=== PATIENT | male | born 2000 | race Caucasian/White ===

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

== ENCOUNTER 2018-06-27 19:22 | Emergency (ER) | payer OTHER ==
--- NOTE | 2018-06-27 19:41 | EDPHY ---
H & P Stated Complaint: R rib pain d/t skateboarding fall x2days ago Time Seen by Provider: 06/27/18 19:41 HPI/ROS: CHIEF COMPLAINT: Pleuritic chest pain, rib pain following fall from skateboard HISTORY OF PRESENT ILLNESS: The patient presents to the ED with complaints of painful breathing and right posterior rib pain after he fell from a skateboard onto his right back 2 days ago. The patient's symptoms have been persistent since his fall. He did not strike his head or lose consciousness. He has no complaints of headache, cervical spine neck pain, numbness, weakness, abdominal pain, lower back pain or lower extremity pain. REVIEW OF SYSTEMS: Constitutional: normal mentation Eyes: No visual changes ENT: no oral trauma Respiratory: As above Cardiac: No chest pain Gastrointestinal: No nausea, no vomiting, no abdominal pain Genitourinary: No hematuria, no dysuria Musculoskeletal: no extremity pain Skin: no abrasions, no lacerations Neurological: No headache, no numbness, no weakness Back: No midline pain Source: Patient Exam Limitations: No limitations - Personal History Current Tetanus/Diphtheria Vaccine: Yes - Medical/Surgical History Hx Asthma: No Hx Chronic Respiratory Disease: No Hx Diabetes: No Hx Cardiac Disease: No Hx Renal Disease: No Hx Cirrhosis: No Hx Alcoholism: No Hx HIV/AIDS: No Hx Splenectomy or Spleen Trauma: No Other PMH: denies - Social History Smoking Status: Never smoked - Physical Exam Exam: General Appearance: Alert, no distress Head: Atraumatic Eyes: Pupils equal, round, reactive ENT, Mouth: No hemotympanum, no oral trauma Neck: Nontender, trachea midline Respiratory: Tenderness to palpation right posterior chest wall, no subcutaneous emphysema Cardiovascular: Regular rate and rhythm Abdomen: Abdomen is soft and nontender, pelvis stable Skin: No lacerations, No abrasion Back: No midline T/L/S pain Extremities: Nontender, full range of motion Constitutional: Initial Vital Signs Temperature (C) 36.8 C 06/27/18 19:24 Heart Rate 82 06/27/18 19:24 Respiratory Rate 18 06/27/18 19:24 Blood Pressure 150/99 H 06/27/18 19:24 O2 Sat (%) 97 06/27/18 19:24 O2 Delivery Mode Room Air Allergies/Adverse Reactions: No Known Allergies Allergy (Unverified 06/27/18 19:27) Home Medications: Medication Instructions Recorded NK [No Known Home Meds] 06/27/18 Medical Decision Making - Diagnostics Imaging Results: Imaging Impressions Chest X-Ray 06/27/18 19:34 Impression: Chest negative for acute posttraumatic sequela. ED Course/Re-evaluation: The patient presents the ED with complaints of posterior rib pain and slight dyspnea following a fall skateboarding several days ago. The patient has no head injury or neck injury. He arrives with a GCS of 15. He has a normal neurologic examination. Vital signs are stable. His abdominal examination is benign. He has no evidence of extremity trauma. The patient was taken for a chest x-ray which demonstrated no evidence of an obvious displaced rib fracture or pneumothorax. Clinically the patient presents with symptoms most consistent with a nondisplaced rib fracture. At this point time the patient will be discharged home with customary rib injury aftercare instructions. He is advised to return to the ED immediately for worsening dyspnea. Patient is encouraged to use Tylenol and ibuprofen as needed for pain management. Differential Diagnosis: Differential diagnosis considered includes rib fracture, pneumothorax, hemothorax, chest wall contusion Departure - Departure Disposition: Home, Routine, Self-Care Clinical Impression: Chest wall contusion, Rib fracture Condition: Good Instructions: Rib Fracture (ED) Additional Instructions: 1. I see no obvious displaced rib fracture on your chest x-ray but given her tenderness I suspect you have a nondisplaced rib fracture. 2. Your chest x-ray demonstrates no evidence of a collapsed lung. It is imperative you return to the emergency department immediately for any increasing pain or shortness of breath. 3. Tylenol and ibuprofen as needed for pain. Ice area of tenderness and swelling 20-30 minutes at a time several times a day.
[2018-06-27 20:56] VITALS: BP 121/82
== END 2018-06-27 20:55 | disposition home or self-care (01) ==
DX: S20.211A Contusion of right front wall of thorax, initial encounter (principal); R07.81 Pleurodynia; V00.131A Fall from skateboard, initial encounter; Y92.830 Public park as the place of occurrence of the external cause; Y93.51 Activity, roller skating (inline) and skateboarding